=== PATIENT | male | born 1960 | race Caucasian/White ===

== ENCOUNTER → 2019-10-20 09:04 | Outpatient (BNVA) | payer OTHER, SELFPAY | PROVIDERS: Family Provider Family Medicine; Referring Provider Emergency Medicine Emergency Medical Services; Visit Provider Podiatrist Foot & Ankle Surgery | DX: M79.671 Pain in right foot (principal); M79.672 Pain in left foot | CPT/HCPCS: 73630 ==

== ENCOUNTER → 2022-03-27 09:59 | Outpatient (BNVA) | payer OTHER, SELFPAY | PROVIDERS: Family Provider Family Medicine; Visit Provider Podiatrist Foot & Ankle Surgery | DX: M21.621 Bunionette of right foot (principal); M21.622 Bunionette of left foot; M21.619 Bunion of unspecified foot; L60.8 Other nail disorders; E11.9 Type 2 diabetes mellitus without complications | CPT/HCPCS: 73630; 99213; 99214 ==

== ENCOUNTER → 2022-06-15 08:56 | Outpatient (BNVA) | payer OTHER, SELFPAY | PROVIDERS: Family Provider Family Medicine; Visit Provider Podiatrist Foot & Ankle Surgery | DX: L60.0 Ingrowing nail (principal); M21.621 Bunionette of right foot; M21.622 Bunionette of left foot; L60.8 Other nail disorders; E11.9 Type 2 diabetes mellitus without complications; L60.3 Nail dystrophy; M21.619 Bunion of unspecified foot | CPT/HCPCS: 11750 ==

== ENCOUNTER 2024-06-17 20:00 | Outpatient (CLI) | payer OTHER, SELFPAY | END 2024-06-17 20:01 | disposition home or self-care (01) | LOC: SLEEP 06-18 00:26 | PROVIDERS: Family Provider Family Medicine; Visit Provider Family Medicine | DX: G47.33 Obstructive sleep apnea (adult) (pediatric) (principal); Z99.89 Dependence on other enabling machines and devices | CPT/HCPCS: 95811 ==

== ENCOUNTER → 2025-01-19 08:57 | Outpatient (BNVA) | payer OTHER, SELFPAY | PROVIDERS: Family Provider Family Medicine; PCP Family Medicine; Visit Provider Podiatrist Foot & Ankle Surgery | DX: M79.671 Pain in right foot (principal); M79.672 Pain in left foot | CPT/HCPCS: 73630 ==

== ENCOUNTER 2025-02-23 11:29 | Emergency (ER) | payer OTHER, MEDICARE, SELFPAY ==
--- OUTSIDE RECORDS SUMMARY | 2025-02-23 11:34 | XMS_ITS | Encounter Summary ---
Author Organization [facility] Address [address] [place] [address] Care Team Providers Care Pool Player Name Role Phone Esther Olivo DO Primary Care Provider Encounter Details Date Type Department Care Team (Latest Contact Info) Description 05/10/2005 Outpatient Historical [facility] Oral and Maxillo Surgery- [address] [place] [phone] Drew Turner, DDS [address] [place] [phone] Tooth eruption disturb (Primary Dx) Social History Tobacco Use Types Packs/Day Years Used Date Smoking Tobacco: Never Assessed Sex and Gender Information Value Date Recorded Sex Assigned at Not on file 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
--- OUTSIDE RECORDS SUMMARY | 2025-02-23 11:34 | XMS_ITS | Encounter Summary ---
Author Organization [facility] Address [address] [facility] [address] Care Team Providers Care Ingot Weigher Name Role Phone Esther Olivo Primary Care Provider Encounter Details Date Type Department Care Team (Late st Contact Info) Description 02/17/2025 External Device Data [place] ABSTRACTION Provider, Abstract NO ADDRESS ON FILE Social History Tobacco Use Types Packs/Day Years Used Date Smoking Tobacco: Never Smokeless Tobacco: Never Alcohol Use Standard Drinks/Week Comments Yes 5 (1 standard drink = 0.6 oz pur e alcohol) Financial Resource Strain Answer Date R ecorded How hard is it for you to pa y for the very basics like food, housing, medical care, and heating? Not hard at all 05/31/2022 Food Insecurity Answer Date Recorded In the past 12 months, have you worried that your food would run out before you had money to buy more? Never true 05/31/2022 In the past 12 months, did y ou run out of food and didn't have money to buy more? Never true 05/31/2022 Transportation Needs Answer Date Record ed In the past 12 months, has l ack of transportation kept you from medical appointments or from getting medications? No 05/31/2022 Lack of Transportation (Non-Medical) Not on file 05/31/2022 Feeling Safe Answer Date Recorded Are you in a relationship wi th someone who hurts you emotionally and/or physically? 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 Gender Identity Not on file Sexual Orientation Not on file documented as of this encounter Plan of Treatment Upcoming Encounters Date Type Department Care Team (Late st Contact Info) Description 03/25/2025 11:20 AM CDT Office Visit [facility] [address] [place] [phone] Esther Olivo DO [address] [place] [phone] 04/02/2025 10:45 AM CDT Office Visit [facility] [address] [facility] [place] [address] Tavares Rg MD [facility] [address] [place] [address] 06/18/2025 1:20 PM PURCHASING ENGINEER Office Visit [facility] [address] [place] [phone] Esther Olivo DO [address] [place] [facility] [place] [phone] documented as of this encounter Visit Diagnoses Not on filedocumented in this encounter Care Teams Ingot Weigher Relationship Specialty Start Date End Date Esther Olivo DO [address] [place] [facility] [place] [phone] PCP - General Family Practice 10/19/09 documented as of this encounter
--- OUTSIDE RECORDS SUMMARY | 2025-02-23 11:34 | XMS_ITS | Clinical Summary ---
Author Organization [facility] Address [address] [place] [address] Care Team Providers Care Diversity Specialist Name Role Phone PallaviEsther jesus Dat DELGADO Primary Care Provider Allergies No known active allergies Medications olopatadine (PATANOL) 0.1 % solution INSTILL 1 DROP IN BOTH EYES TWICE A DAY 15 mL 12/30/19 20 Active diclofenac sodium (Voltaren) 1 % gel 10/20/19 20 Active sildenafiL, pulm.hypertension, (REVATIO) 20 mg TabletIndications: Benign prostatic hyperplasia, unspecified whether lower urinary tract symptoms present TAKE 1 TO 2 TABLETS 1 HOUR PRIOR TO INTERCOURSE 30 Tablet 11 02/06/20 20 Active omeprazole (PriLOSEC) 20 mg Capsule, Delayed Release(E.C.) Take 1 Capsule (20 mg) by mouth daily. 90 Capsule 4 04/15/20 20 Active tamsulosin (FLOMAX) 0.4 mg capsule Take 2 Capsules (0.8 mg) by mouth daily. 180 Capsule 4 04/19/20 20 Active fluticasone propionate (FLONASE) 50 mcg/spray [place], Suspension nasal inhaler USE 2 SPRAYS IN EACH NOSTRIL DAILY 16 Gram 11 05/22/20 20 Active lidocaine-prilocai ne (EMLA) 2.5-2.5 % CreamIndications:C hronic midline posterior neck pain Apply to affected area see administration instructions. Apply to affected area up to 3 times daily prn 90 Gram 4 07/15/19 21 Active metoprolol tartrate (LOPRESSOR) 50 mg tabletIndications: Essential hypertension TAKE 1 TABLET TWICE A DAY 180 Tablet 4 10/15/19 21 Active simvastatin (ZOCOR) 20 mg tabletIndications: Mixed hyperlipidemia Take 1 Tablet (20 mg) by mouth late in the day. 90 Tablet 4 10/15/19 21 Active celecoxib (CeleBREX) 200 mg capsuleIndications :Chronic midline posterior neck pain,Chronic midline low back pain with bilateral sciatica Take 1 Capsule (200 mg) by mouth 2 times daily. 180 Capsule 4 10/15/19 21 Active amLODIPine (NORVASC) 10 mg tabletIndications: Essential hypertension TAKE 1 TABLET DAILY 90 Tablet 3 10/15/19 21 Active HYDROcodone-acetam inophen (NORCO) 10-325 mg TabletIndications: Chronic midline posterior neck pain,Chronic midline low back pain with bilateral sciatica TAKE 1 T PO Q4H PRN F MODERATE PAIN . 100 Tablet 10/15/19 Active traMADoL (ULTRAM) 50 mg tabletIndications: Chronic midline posterior neck pain,Chronic midline low back pain with bilateral sciatica Take 2 Tablets (100 mg) by mouth 4 times daily as needed for Pain. Fax to express scripts 180 Tablet 2 10/15/19 Active polyethylene glycol 3350 (MIRALAX) 17 gram/dose Powder Dissolve entire bottle in ounces of fluid and drink entire liquid for bowel prep 238 Gram 10/20/19 Active bisacodyL (DULCOLAX) 5 mg Delayed Release tablet Take 2 tablets the night before bowel prep and 2 tablets the morning of bowel prep 4 Tablet 10/20/19 Active phentermine (ADIPEX P) 37.5 mg tabletIndications: Severe obesity (BMI 35.0-39.9) with comorbidity (CMS/HCC) Take 1 Tablet (37.5 mg) by mouth daily before breakfast. 30 Tablet 2 10/21/19 21 Active Active Problems Problem Noted Date Diagnosed Date Chronic midline posterior neck pain 08/31/2017 Severe obesity (BMI 35.0-39.9) with comorbidity 08/14/2016 Benign prostatic hyperplasia 08/24/2015 Obstructive sleep apnea syndrome 06/26/2012 Essential hypertension 01/29/2012 Mixed hyperlipidemia 01/29/2012 S/P cervical spinal fusion 05/29/2011 Overview (05/29/2011): C5-[address] Thao in 2009 Carpal tunnel syndrome 07/26/2010 Chronic midline low back pain with bilateral sci atica 04/22/2008 Resolved Problems Problem Noted Date Diagnosed Date Resolved Date Acute sinusitis, unspecified 11/06/2012 04/21/2014 Acute sinusitis, unspecified 11/06/2012 04/21/2014 Nasal septal deviation 06/26/201206/05 Hypertrophy of inferior nasal turbinate 06/26/2012 06/05/2017 Cubital tunnel syndrome 07/26/201004/02 Acute lumbar back pain 04/22/200804/21 Immunizations Immunization Administration Dates Next Due ([id number])(ALL AGES) VACCINI A (SMALLPOX) VACCINE, PERCUTANEOUS 09/05/2002,08/28/2002,10/10/1988 (ADACEL/BOOSTRIX)(10 YR UP) TDAP VACCINE, 0.5ML, IM 10/23/2014,07/12/2002,09/26/1988 (BIOTHRAX)(18-65 YRS) ANTHRA X VACCINE, PRE-EXPOSURE PROPHYLAXIS, POST EXPOSURE PROPHYLAXIS, 0.5 ML IM 01/27/2003,08/28/2002,08/09/2002,07/26,08/29/1990,07/17/1990 (M-M-R II/PRIORIX)(12 MO UP) MEASLES, MUMPS AND RUBELLA VIRUS VACCINE, 0.5 ML IM/SUBCUT 08/25/2002,10/10/1988 (PNEUMOVAX 23)(50 YRS UP) PN EUMOCOCCAL POLYSACCHARIDE (PPV23) 0.5 ML, IM 04/27/2020 (YF-VAX)(9 MOS UP) YELLOW FE JORDAN VACCINE, 0.5 ML, SUBCUT 03/10/1989 Hepatitis A Vaccine 09/05/2002,04/01/2001,1998 Hepatitis B Vaccine 09/05/2002, 3,07/12/2002,04/01,03/10/1989 INFLUENZA VACCINE QUADRIVALE NT 6 MOS UP PF IM 04/15/2020,04/15/2019 Influenza Seasonal Unspecifi ed Formulation IM 04/18/2019,04/01/2018,04/01/2012,06/07,06/01/2007,07/09/2005,04/29/2003 ,06/14/2002,05/03/1996,06/04/1995,04/02,05/07/1994,06/05/1992, 2,05/22/1990,05/05/1989,09/26/1988 Influenza Vaccine Quad Split 3+ Yrs Im 7,05/12/2016,05/14/2015 Influenza Vaccine Split 3+ Yrs IM 06/01/2010 Influenza Vaccine Tri Split 4+ Im 2018,04/01/2018,04/01/2012,06/07,06/01/2007,07/09/2005,04/29/2003 ,06/14/2002,05/03/1996,06/04/1995,04/02,05/07/1994,06/05/1992, 2,05/22/1990,05/05/1989,09/26/1988 Measles Vaccine SQ 10/10/1988 Meningococcal ACWY Vaccine, Unspecified Formulation 08/28/2002,09/26/1988 Plague Vaccine IM 03/10/1989 Poliovirus Vaccine Live Oral 08/05/1994,10/10/18 89 Rubella Vaccine SQ 09/02/1988 Typhoid Vaccine IM 08/05/1994,05/22/1990 Zoster Vaccine Live SQ 06/18/2019,04/15/2019 Family History Medical History Relation Name Comments Parkinson's Disease Father Diabetes Maternal Grandfather Colon Cancer Neg Hx Relation Name Status Comments Father Alive Maternal Grandfather Mother Alive Sister Alive Social History Tobacco Use Types Packs/Day Years Used Date Smoking Tobacco: Never Smokeless Tobacco: Never Tobacco Cessation:Counseling Given: No Alcohol Use Standard Drinks/Week Comments Yes 5.8 (1 standard drink = 0.6 oz p ure alcohol) occ Sex and Gender Information Value Date Recorded Sex Assigned at Not on file 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 Gender Identity Not on file Sexual Orientation Not on file Occupation Industry Job Start Date Job End Date [employer] [place] Not on file Not on file Not on file Not on file Not on file Not on file Not on file Last Filed Vital Signs Vital Sign Reading Time Taken Comments Blood Pressure 200/118 12/16/2020 11:52 AM CDT Pulse 57 12/16/2020 11:34 AM CDT Temperature 36.6 C (97.8 F) 12/16/2020 11:34 AM CDT Respiratory Rate 20 12/16/2020 11:34 AM CDT Oxygen Saturation 97% 12/16/2020 11:34 AM CDT Inhaled Oxygen Concentration - - Weight 112.5 kg (248 lb) 12/16/2020 11:34 AM CDT Height 170.2 cm (5' 7 ) 12/16/2020 11:34 AM CDT Body Mass Index 38.84 12/16/2020 11:34 AM CDT Plan of Treatment Health Maintenance Due Date Last Done Comments DIABETES ANNUAL FOOT EXAM 12/04/1977 DIABETES HBA1C Q 6 MONTHS 12/04/1977 FIT-DNA Q 3 years 12/04/2004 FIT/FOBT Q 1 year 12/04/2004 Flex Sig/CT Colonography Q 5 years 12/04/2004 DIABETES MICROALBUMIN ANNUAL SCREEN 01/28/2013 01/29/2012 ZOSTER VACCINE (2 of 3) 08/13/2019 06/18/2019, 04/15 RSV VACCINE (60+ or ) (1 - Risk 60-74 years 1-dose series) 2019 Traditional Medicare (ACO) A nnual Wellness Visit 04/16/2021 04/15/2020 PNEUMOCOCCAL VACCINE 50+ YEA RS (2 of 2 - PCV) 04/27/2021 04/27/2020 LDL CHOLESTEROL ANNUAL 10/14/2021 1, 01/06/2020, 03/18/2019, Additional history exists DTAP/TDAP/TD VACCINES (4 - T d or Tdap) 10/23/2024 10/23/2014, 07/12/2002, 09/26/1988 INFLUENZA VACCINE (#1) 2025 0, 04/18/2019, 04/18/2019, Additional history exists DIABETES ANNUAL RETINAL EXAM 09/25/2025 09/25/2024 COLORECTAL SCREENING 12/16/2025 12/16/2020, 07/08/2015, 07/08/2015 Colorectal Cancer Screening 12/16/2025 Medical Devices Implanted Type Area Presales Senior Specialist Device Identifier Shelf Expiration Date Model / Serial / Lot Vitossba Implanted:Qty: 1 on 05/24/2010 at [facility] Biological N/A: Neck ORTHOVITA 12/01/2011 [id number] / / [id number] Log 32906 - Dimitris Trinica Cervical Plating System - 1 - Plate Trinica Select 1lvl [id number] Implanted:Qty: 1 on 05/24/2010 at [facility] Plate N/A: Neck DIMITRIS-SPINE [id number] 01 / / [id number] Log [id number] - Dimitris Trinica Cervical Plating System - 1 - Screw Trnca Sd Nadia 4.2x14mm [id number] Implanted:Qty: 4 on 05/24/2010 at [facility] Screw N/A: Neck DIMITRIS-SPINE [id number] 05 / / [id number] Fortitude Implanted:Qty: 1 on 05/24/2010 at [facility] Spacer N/A: Neck DIMITRIS-SPINE 03/02/2015 [id number] / / [id number] Procedures Procedure Name Priority Date/Time Associated Diagnosis Comments LIPID PANEL Routine 10/14/2020 9:50 AM CDT Essential hypertension Mixed hyperlipidemia ENDOSCOPY, COLON, SCREENING Routine 07/08/2015 10:16 AM FRYER OPERATOR Screen for colon cancer MICROALBUMIN/CREAT ININE RATIO, RANDOM UR Routine 01/29/2012 9:31 AM CDT Microalbuminuria from Last 3 Months or Most Recently Relevant to Health Maintenance Results * (ABNORMAL) LIPID PANEL (10/14/2020 9:50 AM CDT) CHOLESTEROL 161 <200 mg/dL 10/14/2020 9:14 PM CDT [facility] TRIGLYCERIDE 406(H) <150 mg/dL 10/14/2020 9:14 PM CDT [facility] HDL 34(L) 40 - 59 mg/dL 10/14/2020 9:14 PM CDT [facility] LDL CALCULATED 10/14/2020 9:14 PM CDT [facility] Comment:Calculated LDL is no t accurate when the Triglyceride value exceeds 400. NON-HDL CHOLESTEROL 127 <130 mg/dL 10/14/2020 9:14 PM CDT [facility] Blood Venipuncture / Unknown 10/14/2020 9:50 AM CDT 10/14/2020 8:15 PM CDT Narrative [facility] - 10/14/2020 9:14 PM CDT TOTAL CHOLESTEROL mg/dL Desirable <200 Borderline high 200-239 High >=240 TRIGLYCERIDES mg/dL Normal <150 Borderline high 150-199 High 200-499 Very high >=500 HDL CHOLESTEROL mg/dL Low <40 Normal 40-59 Desirable >=60 NON HDL CHOLESTEROL mg/dL Optimal <130 Near Optimal 130-159 Borderline High 160-189 Very High >=190 CALCULATED LDL mg/dL LDL <70, OPTIMAL if have Atherosclerotic cardiovascular disease (ASCVD) or intermediate or higher (>7.5%) 10 year risk of ASCVD including most adults with diabetes. LDL <100, Optimal in adult patients with low (<7.5%) 10 year ASCVD risk LDL 100-160, Suboptimal LDL >160, High LDL >190, Very high ATPIII Guidelines Reference Ranges for Lipid Panels (NCEP/AMA) . us Esther Olivo DO CHEMISTRY ORDERABLES Final Result [facility] CLIA# [id number] [address] [place] [id number] * MICROALBUMIN/CREATININE RATIO, RANDOM UR (01/29/2012 9:31 AM CDT) MICROALBUMIN URINE 1.2 MG/DL [facility] Creatinine, Urine 97 MG/DL [facility] MICROALBUMIN/CREA T RATIO, UR 12.4 MCG/MG CREAT. [facility] Comment: NORMAL: <30 MCG/MG CREAT MICROALBUMINURIA: 30-300 MCG/MG CREAT CLINICAL ALBUMINURIA: >300 MCG/MG CREAT Urine specimen (specimen) 01/29/2012 9:31 AM CDT 01/29/2012 9:32 AM CDT [place] URINE ORDERABLES Final Result [facility] [place] [facility]# [id number] [address] [place] [address] from Last 3 Months or Most Recently Relevant to Health Maintenance Insurance MEDICARE PART A AND B [employer] Advance Directives For more information, please contact: [phone] * Full Code (Latest Code Status on File) Date Activated Date Inactivated Comments 12/16/2020 11:09 AM 12/16/2020 2:21 PM * Full Code Date Activated Date Inactivated Comments 07/08/2015 10:16 AM 07/08/2015 2:27 PM * Full Code Date Activated Date Inactivated Comments 11/29/2012 10:35 AM 11/30/2012 2:01 AM * Full Code Date Activated Date Inactivated Comments 11/29/2012 10:34 AM 11/29/2012 10:35 AM * Full Code Date Activated Date Inactivated Comments 09/01/2011 10:13 AM 09/02/2011 2:01 AM Care Teams Diversity Specialist Relationship Specialty Start Date End Date Esther Olivo DO [address] [place] [address] PCP - General Family Practice 10/19/09
--- OUTSIDE RECORDS SUMMARY | 2025-02-23 11:34 | XMS_ITS | Encounter Summary ---
Author Organization [facility] Address [address] [place] [address] Care Team Providers Care Bpm Developer Name Role Phone Esther Olivo DO Primary Care Provider Encounter Details Date Type Department Care Team (Latest Contact Info) Description 02/17/2005 Outpatient Historical [facility] Oral and Maxillo Surgery- [address] [place] [phone] Drew Turner, DDS [address] [place] [phone] Tooth eruption disturb (Primary Dx) Social History Tobacco Use Types Packs/Day Years Used Date Smoking Tobacco: Never Assessed Sex and Gender Information Value Date Recorded Sex Assigned at Not on file Legal Sex Male 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
--- OUTSIDE RECORDS SUMMARY | 2025-02-23 11:34 | XMS_ITS | Encounter Summary ---
Author Organization [facility] Address [address] [place] [address] Care Team Providers Care Manager Urology Name Role Phone Esther Olivo DO Primary Care Provider [phone] Encounter Details Date Type Department Care Team (Latest Contact Info) Description 05/18/2005 Outpatient Historical [facility] Oral and Maxillo Surgery- [address] [place] [phone] Drew Turner, DDS [address] [place] [phone] SURGERY FOLLOWUP NOS (Primary Dx) Social History Tobacco Use Types Packs/Day Years Used Date Smoking Tobacco: Never Assessed Sex and Gender Information Value Date Recorded Sex Assigned at Not on file 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
--- OUTSIDE RECORDS SUMMARY | 2025-02-23 11:34 | XMS_ITS | Encounter Summary ---
Author Organization [facility] Address [address] [place] [address] Care Team Providers Care Metal Hanger Name Role Phone Esther Olivo DO Primary Care Provider Encounter Details Date Type Department Care Team (Latest Contact Info) Description 06/02/2005 Outpatient Historical [facility] Oral and Maxillo Surgery- [address] [place] [address] Drew Turner, DDS [address] [place] [phone] SURGERY FOLLOWUP NOS (Primary Dx) Social History Tobacco Use Types Packs/Day Years Used Date Smoking Tobacco: Never Assessed Sex and Gender Information Value Date Recorded Sex Assigned at Not on file 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
--- OUTSIDE RECORDS SUMMARY | 2025-02-23 11:34 | XMS_ITS | Clinical Summary ---
Author Organization [facility] Address [address] [place] [address] Care Team Providers Care Shipping/Receiving Clerk Name Role Phone Esther Olivo Primary Care Provider Allergies Active Allergy Reactions Criticality Noted Date Comments Ibuprofen Nausea and Vomiting Medium 05/22/2024 Phentermine Other (See Comments),Hypertension Medium 05/31/2022 Upsets stomach Medications Blood-Glucose Meter Check blood sugars daily and prn 1 Each 01/14/20 21 Active blood sugar diagnostic (Blood Glucose Test) Strip Test sugars daily and prn 100 Strip 01/14/20 21 Active CYANOCOBALAMIN, VITAMIN B-12, ORAL Take by mouth. Active VITAMIN A ORAL Take by mouth. Active diclofenac sodium (VOLTAREN) 1 % gelIndications:Natty geo osteoarthritis of feet, bilateral APPLY UP TO FOUR TIMES A DAY NEEDED 300 Gram 8 04/30/20 23 Active simvastatin (ZOCOR) 20 mg tabletIndications: Mixed hyperlipidemia TAKE 1 TABLET LATE IN THE DAY 61589 Tablet 3 02/05/20 24 Active tadalafiL (Cialis) 20 mg tablet Take 1 Tablet (20 mg) by mouth 1 time daily as needed for Erectile Dysfunction. 30 Tablet 11 04/01/20 24 Active traMADoL (ULTRAM) 50 mg tabletIndications: Chronic midline low back pain with bilateral sciatica Take 2 Tablets (100 mg) by mouth 4 times daily as needed for Pain, Moderate. 180 Tablet 2 05/22/20 24 Active celecoxib (CeleBREX) 200 mg capsuleIndications :Chronic midline posterior neck pain,Chronic midline low back pain with bilateral sciatica TAKE 1 CAPSULE TWICE A DAY 180 Capsule 3 05/23/20 24 Active naloxone (NARCAN) 4 mg/spray Omaha, Non-Aerosol Administer 1 Omaha (4 mg) in one nostril (alternate nostril with each dose) one time as needed for Respiration (slowed with opioid use). Push plunger to administer. Call 911. May repeat dose, every 2-3 minutes, if the person does not wake up or breathing is not improved. 1 Each 05/27/20 24 Active amLODIPine (NORVASC) 10 mg tabletIndications: Essential hypertension TAKE 1 TABLET DAILY 90 Tablet 3 05/28/20 24 Active fluticasone propionate (FLONASE) 50 mcg/spray [place], Suspension nasal inhaler USE 2 SPRAYS IN EACH NOSTRIL DAILY 16 Gram 11 07/03/19 25 Active metoprolol tartrate (LOPRESSOR) 100 mg tablet Take 1 Tablet (100 mg) by mouth 2 times daily. 180 Tablet 4 07/11/19 25 Active omeprazole (PriLOSEC) 20 mg Capsule, Delayed Release(E.C.) Take 1 Capsule (20 mg) by mouth daily. 100 Capsule 3 07/24/19 25 Active lidocaine-prilocai ne (EMLA) 2.5-2.5 % Cream APPLY TO AFFECTED AREA THREE TIMES A DAY NEEDED 90 Gram 11 08/03/19 25 Active tamsulosin (FLOMAX) 0.4 mg capsule TAKE 2 CAPSULES DAILY 180 Capsule 3 11/20/19 25 Active metFORMIN (GLUCOPHAGE XR) 750 mg Extended Release 24 hour tablet TAKE 1 TABLET TWICE A DAY WITH MEALS FOR DIABETES 180 Tablet 3 11/20/19 25 Active magnesium OXIDE 500 mg magnesium Tablet Take 250 mg by mouth daily. Active semaglutide (Ozempic) 2 mg/dose (8 mg/3 mL) Pen Injector Inject 2 mg by subcutaneous injection every 7 days. 9 mL 3 01/19/20 25 Active HYDROcodone-acetam inophen (NORCO) 10-325 mg TabletIndications: Chronic midline low back pain with bilateral sciatica Take 1 Tablet by mouth every 4 hours as needed for Pain, Moderate. Max Daily Amount: 6 Tablets 180 Tablet 01/27/20 25 Active HYDROcodone-acetam inophen (NORCO) 10-325 mg TabletIndications: Chronic midline low back pain with bilateral sciatica Take 1 Tablet by mouth every 4 hours as needed for Pain, Moderate. Take tab every 6 hours prn pain Max Daily Amount: 6 Tablets 180 Tablet 11/26/19 025 Discontin ued(Reord er) Active Problems Problem Noted Date Diagnosed Date Primary osteoarthritis involving multiple joints 06/03/2023 Type 2 diabetes mellitus wit hout complication, without long-term current use of insulin 01/13/2021 Chronic neck pain 08/31/2017 Severe obesity (BMI 35.0-39.9) with comorbidity 08/14/2016 Benign prostatic hyperplasia with urinary hesita ncy 08/24/2015 Obstructive sleep apnea syndrome 06/26/2012 Essential hypertension 01/29/2012 Mixed hyperlipidemia 01/29/2012 S/P cervical spinal fusion 05/29/2011 Overview (10/28/2020): C5-[address] Thao in 2009 Carpal tunnel syndrome 07/26/2010 Chronic midline low back pain with bilateral sci atica 04/22/2008 Resolved Problems Problem Noted Date Diagnosed Date Resolved Date Acute sinusitis, unspecified 11/06/2012 04/21/2014 Acute sinusitis, unspecified 11/06/2012 04/21/2014 Nasal septal deviation 06/26/201206/05 Hypertrophy of inferior nasal turbinate 06/26/2012 06/05/2017 Cubital tunnel syndrome 07/26/201004/02 Acute lumbar back pain 04/22/200804/21 Encounters Date Type Department Care Team Description 02/17/2025 External Device Data ST[facility] ABSTRACTION Provider, Abstract 02/10/2025 External Device Data [facility] ABSTRACTION Provider, Abstract 01/26/2025 [facility] [address] [place] [address] Esther Olivo DO Chronic midline low back pain with bilateral sciatica 01/18/2025 [facility] [address] [place] [address] Esther Olivo DO 01/14/2025 External Device Data STL ABSTRACTION Provider, Abstract 01/13/2025 External Device Data STL ABSTRACTION Provider, Abstract 12/23/2024 11:40 AM CDT Office Visit [facility] [address] [place] [address] Esther Olivo, Type 2 diabetes mellitus without complication, without long-term current use of insulin (CMS/[facility]) (Primary Dx); Chronic midline low back pain with bilateral sciatica; Essential hypertension; Mixed hyperlipidemia; Benign prostatic hyperplasia with urinary hesitancy; Primary osteoarthritis involving multiple joints; Chronic neck pain; Obstructive sleep apnea syndrome; Severe obesity (BMI 35.0-39.9) with comorbidity 12/16/2024 External Device Data STL ABSTRACTION Provider, Abstract 11/25/2024 11:40 AM CDT Office Visit [facility] [address] [place] [address] Esther Olivo DO Type 2 diabetes mellitus without complication, without long-term current use of insulin (CMS/HCC) (Primary Dx); Spider bite wound, accidental or unintentional, subsequent encounter; Chronic midline low back pain with bilateral sciatica; Essential hypertension; Mixed hyperlipidemia; Benign prostatic hyperplasia with urinary hesitancy; Primary osteoarthritis involving multiple joints; Chronic neck pain; Obstructive sleep apnea syndrome; Severe obesity (BMI 35.0-39.9) with comorbidity from Last 3 Months Immunizations Immunization Administration Dates Next Due ([id number])(ALL AGES) VACCINI A (SMALLPOX) VACCINE, PERCUTANEOUS 09/05/2002,08/28/2002,10/10/1988 [...] INFLUENZA VACCINE QUADRIVALE NT 6 MOS UP IM 05/31/2017,05/12/2016,05/14/2015 INFLUENZA VACCINE QUADRIVALE NT 6 MOS UP PF IM 05/28/2023,05/31/2022,05/23/2021,04/15,04/15/2019 INFLUENZA VACCINE TRIVALENT SPLIT VIRUS, (6 MOS UP), 0.5ML (PF), IM 05/22/2024 Influenza Seasonal Unspecifi ed Formulation IM 04/18/2019,04/01/2018,04/01/2012,06/07,06/01/2007,07/09/2005,04/29/2003 ,06/14/2002,05/03/1996,06/04/1995,04/02,05/07/1994,06/05/1992, 2,05/22/1990,05/05/1989,09/26/1988 Influenza Vaccine Quad Split 3+ Yrs Im 7,05/12/2016,05/14/2015 Influenza Vaccine Split 3+ Yrs IM 06/01/2010 Influenza Vaccine Tri Split 4+ Im 2018,04/01/2018,04/01/2012,06/07,06/01/2010,06/01/2007,07/09/2005 ,04/29/2003,06/14/2002,05/03/1996,09/1994,04/29/1995,05/07/1994, 2,08/02/1991,05/22/1990,05/05/1989, Measles Vaccine SQ 10/10/1988 Meningococcal ACWY Vaccine, Unspecified Formulation 08/28/2002,09/26/1988 Plague Vaccine IM 03/10/1989 Pneumococcal Polysaccharide Vacc 23-samantha IM SCHIP 04/27/2020 Poliovirus Vaccine Live Oral 08/05/1994,10/10/18 89 Rubella Vaccine SQ 09/02/1988 Typhoid Vaccine IM 08/05/1994,05/22/1990 Zoster Vaccine Live SQ 06/18/2019,04/15/2019 Family History Medical History Relation Name Comments Parkinson's Disease Father Diabetes Maternal Grandfather Samm Silva Colon Cancer Neg Hx Relation Name Status Comments Father Alive Maternal Grandfather Samm Silva Mother Alive Sister Alive Social History Tobacco Use Types Packs/Day Years Used Date Smoking Tobacco: Never Smokeless Tobacco: Never Tobacco Cessation:Counseling Given: No Alcohol Use Standard Drinks/Week Comments Yes 5 [...] on file Legal Sex Male 11:54 PM [employer] Gender Identity Not on file Sexual Orientation Not on file Last Filed Vital Signs Vital Sign Reading Time Taken Comments Blood Pressure 136/80 12/23/2024 11:25 AM CDT Pulse 75 12/23/2024 11:25 AM CDT Temperature 37.1 C (98.8 F) 12/23/2024 11:25 AM CDT Respiratory Rate 17 12/11/2023 1:44 PM CDT Oxygen Saturation 96% 12/23/2024 11:25 AM CDT Inhaled Oxygen Concentration - - Weight 110.2 kg (243 lb) 12/23/2024 11:25 AM CDT Height 170.2 cm (5' 7 ) 12/23/2024 11:25 AM CDT stated Body Mass Index 38.06 12/23/2024 11:25 AM CDT Plan of Treatment Upcoming Encounters Date Type Department Care Team (Late st Contact Info) Description 03/25/2025 11:20 AM CDT Office Visit [facility] [address] [place] [phone] Esther Olivo, DO [address] [place] [address] 04/02/2025 10:45 AM CDT Office Visit [facility] Urology [address] [place] [phone] Tavares Rg MD [address] [place] [address] [place] [phone] 06/18/2025 1:20 PM [employer] Office Visit [facility] [address] [place] [phone] Esther Olivo, DO [address] [place] [address] Health Maintenance Due Date Last Done Comments FIT/FOBT Q 1 year 12/04/2004 Flex Sig/CT Colonography Q 5 years 12/04/2004 ZOSTER VACCINE (2 of 3) 08/13/2019 06/18/2019, 04/15 RSV VACCINE (60+ or ) (1 - Risk 60-74 years 1-dose series) 2019 FIT-DNA Q 3 years 02/22/2024 02/21/2021 DIABETES ANNUAL FOOT EXAM 05/28/2024 05/28/2023, DIABETES MICROALBUMIN ANNUAL SCREEN 01/21/2025 01/22/2024, 02/21/2022 INFLUENZA VACCINE (#1) 2025 4, 05/28/2023, 05/31/2022, Additional history exists DIABETES HBA1C Q 6 MONTHS 03/28/20252024, 01/22/2024, 08/30/2023, Additional history exists Traditional Medicare (ACO) A nnual Wellness Visit 05/23/2025 05/22/2024, 05/28/2023, 05/23/2021 DIABETES ANNUAL RETINAL EXAM 09/25/2025 09/25/2024 DIABETES: A1C (Auto Order) 09/25/202509/25, 01/22/2024, 08/30/2023, Additional history exists LDL CHOLESTEROL ANNUAL 09/25/2025 5, 01/22/2024, 02/23/2023, Additional history exists COLORECTAL SCREENING 07/26/2028 07/26/2023, 12/16/2020, 07/08/2015, Additional history exists Colorectal Cancer Screening 07/26/2028 DTAP/TDAP/TD VACCINES (5 - T d or Tdap) 02/11/2032 02/10/2022, 10/23/2014, 07/12/2002, Additional history exists PNEUMOCOCCAL VACCINE 50+ YEARS Completed 0 02/10/2022, 04/27/2020, 04/27/2020 Medical Devices Implanted Type Area Sales Team Leader Device Identifier Shelf Expiration Date Model / Serial / Lot Vitossba Implanted:Qty: 1 on 05/24/2010 Biological N/A: Neck ORTHOVITA 12/01/2011 2102-160 1 / / [id number] Imp Prostate Urolift 2 Cartridge Hndl Kit Ul2-Chk - [id number] Implanted:Qty: 1 on 02/14/2023 by Tavares Rg MD at [facility] Other N/A: Prostate NEOTRACT [id number] 11/15/2023 UL2-CHK / / [id number] Imp Prostate Urolift 2 Cartridge Ul2-C - [id number] Implanted:Qty: 1 on 02/14/2023 by Tavares Rg MD at [facility] Other N/A: Prostate NEOTRACT [id number] 10/10/2023 UL2-C / / [id number] Imp Prostate Urolift 2 Cartridge Ul2-C - [id number] Implanted:Qty: 1 on 02/14/2023 by Tavares Rg MD at [facility] Other N/A: Prostate NEOTRACT [id number] 10/10/2023 UL2-C / / [id number] Imp Prostate Urolift 2 Cartridge Ul2-C - [id number] Implanted:Qty: 1 on 02/14/2023 by Tavares Rg MD at [facility] Other N/A: Prostate NEOTRACT [id number] 10/10/2023 UL2-C / / [id number] Log [id number] - Dimitris Trinica Cervical Plating System - 1 - Plate Trinica Select 1lvl [id number] Implanted:Qty: 1 on 05/24/2010 Plate N/A: Neck DIMITRIS-SPINE 07.51565 .001 / / [id number] Log [id number] - Dimitris Trinica Cervical Plating System - 1 - Screw Trnca Sd Nadia 4.2x14mm [id number] Implanted:Qty: 4 on 05/24/2010 Screw N/A: Neck DIMITRIS-SPINE 07.80037 .005 / / [id number]#[id number] Fortitude Implanted:Qty: 1 on 05/24/2010 Spacer N/A: Neck DIMITRIS-SPINE 03/02/2015 2302-100 6 / / [id number] Procedures Procedure Name Priority Date/Time Associated Diagnosis Comments HM DIABETES EYE EXAM Routine 09/25/2024 10:36 AM CDT LIPID PANEL Routine 09/25/2024 9:44 AM CDT Type 2 diabetes mellitus without complication, without long-term current use of insulin ([facility]) HEMOGLOBIN A1C Routine 09/25/2024 9:44 AM CDT Type 2 diabetes mellitus without complication, without long-term current use of insulin ([facility]) MICROALBUMIN/CREATIN INE RATIO, RANDOM UR Routine 01/22/2024 9:50 AM CDT Type 2 diabetes mellitus without complication, without long-term current use of insulin ([facility]) COLON CANCER SCREEN, STOOL DNA Routine 02/21/2021 2:30 PM CDT Screening for colon cancer from Last 3 Months or Most Recently Relevant to Health Maintenance Results * DIABETES EYE EXAM (09/25/2024 10:36 AM CDT) us Abstract Provider HEALTH MAINTENANCE Edited Resu lt - Final * (ABNORMAL) HEMOGLOBIN A1C (09/25/2024 9:44 AM CDT) HEMOGLOBIN A1C 6.3(H) <5.7 % of total Hgb [facility] Comment: For someone without known diabetes, a hemoglobin A1c value between 5.7% and 6.4% is consistent with prediabetes and should be confirmed with a follow-up test. For someone with known diabetes, a value <7% indicates that their diabetes is well controlled. A1c targets should be individualized based on duration of diabetes, age, comorbid conditions, and other considerations. This assay result is consistent with an increased risk of diabetes. Currently, no consensus exists regarding use of hemoglobin A1c for diagnosis of diabetes for children. ESTIMATED AVERAGE GLUCOSE (MG/DL) 134 mg/dL [facility] ESTIMATED AVERAGE GLUCOSE (MMOL/L) 7.4 mmol/L [facility] Comment: FASTING:YES FASTING: YES Test Performed at: [facility] [address] [place] [address] Ronal Ye MD Blood 09/25/2024 9:44 AM CDT 09/25/2024 9:45 AM CDT us Esther Dat AlPallavi DO CHEMISTRY ORDERABLES Final Result [facility] [phone] [facility] [address] [address] [place] [phone] * (ABNORMAL) LIPID PANEL (09/25/2024 9:44 AM CDT) CHOLESTEROL 142 <200 mg/dL [facility] HDL 45 > OR = 40 mg/dL [facility] TRIGLYCERIDE 152(H) <150 mg/dL [facility] LDL CALCULATED 74 mg/dL (calc) [facility] Comment: Reference range: <100 Desirable range <100 mg/dL for primary prevention; <70 mg/dL for patients with CHD or diabetic patients with > or = 2 CHD risk factors. LDL-C is now calculated using the Angela calculation, which is a validated novel method providing better accuracy than the Friedewald equation in the estimation of LDL-C. Mann MARTIN et al. KYE. 2013;310(19): 7451-4499 (http://education.GLG/faq/KSX380) CHOL/HDL RATIO 3.2 <5.0 (calc) [facility] NON-HDL CHOLESTEROL 97 <130 mg/dL (calc) [facility] Comment: For patients with diabetes plus 1 major ASCVD risk factor, treating to a non-HDL-C goal of <100 mg/dL (LDL-C of <70 mg/dL) is considered a therapeutic option. Test Performed at: [facility] [address] [facility] [place] [address] Ronal Ye MD Blood 09/25/2024 9:44 AM CDT 09/25/2024 9:45 AM CDT us Esther Dat AlPallavi DO CHEMISTRY ORDERABLES Final Result [facility] [phone] [facility] [address] [place] [address] * MICROALBUMIN/CREATININE RATIO, RANDOM UR (01/22/2024 9:50 AM CDT) Pathologist [facility] Creatinine, Urine 68 20 - 320 mg/dL [facility] MICROALBUMIN, URINE 0.7 See Note: mg/dL [facility] Comment: Reference Range: Reference Range Not established MICROALBUMIN/CREAT RATIO, UR 10 <30 mg/g creat [facility] Comment: The ADA defines abnormalities in albumin excretion as follows: Albuminuria Category Result (mg/g creatinine) Normal to Mildly increased <30 Moderately increased 30-299 Severely increased > OR = 300 The ADA recommends that at least two of three specimens collected within a 3-6 month period be abnormal before considering a patient to be within a diagnostic category. Test Performed at: [facility] [id number] [place] [phone] Ronal Ye MD Urine URINE SPECIMEN OBTAINED BY CLEAN CATCH PROCEDURE / Unknown 01/22/2024 9:50 AM CDT 01/23/2024 6:28 AM CDT us Esther Olivo DO URINE ORDERABLES Final Resu lt [facility] [phone] [facility] [address] [place] [address] * COLON CANCER SCREEN, STOOL DNA (02/21/2021 2:30 PM CDT) [facility] COLOGUARD RESULT Negative Negative [facility] Comment: NEGATIVE TEST RESULT. A negative Cologuard result indicates a low likelihood that a colorectal cancer (CRC) or advanced adenoma (adenomatous polyps with more advanced pre-malignant features) is present. The chance that a person with a negative Cologuard test has a colorectal cancer is less than 1 in 1500 (negative predictive value >99.9%) or has an advanced adenoma is less than 5.3% (negative predictive value 94.7%). These data are based on a prospective cross-sectional study of 10,000 individuals at average risk for colorectal cancer who were screened with both Cologuard and colonoscopy. (Burke Jacob al, N Engl J Med 2014;370(14):0008-6385) The normal value (reference range) for this assay is negative. COLOGUARD RE-SCREENING RECOMMENDATION: Periodic colorectal cancer screening is an important part of preventive healthcare for asymptomatic individuals at average risk for colorectal cancer. Following a negative Cologuard result, the [place] [employer] Society and U.S. Multi-Society Task Force screening guidelines recommend a Cologuard re-screening interval of 3 years. References: [place] [employer] Guideline for Colorectal Cancer Screening: https://www.cancer.org/cancer/rbmch-aeldkl-otvyjh/pbulcvtcs-qrvxbhdeq-ulizqka/ac s-rec ommendations.html.; Hemant FREY, Roel AVILA, Sangita ArringtonK, Colorectal Cancer Screening: Recommendations for Physicians and Patients from the U.S. Multi-Society Task Force on Colorectal Cancer Screening , Am J Gastroenterology 2017; 112:9144-1728. TEST DESCRIPTION: Composite algorithmic analysis of stool DNA-biomarkers with hemoglobin immunoassay. Quantitative values of individual biomarkers are not reportable and are not associated with individual biomarker result reference ranges. Cologuard is intended for colorectal cancer screening of adults of either sex, 45 years or older, who are at average-risk for colorectal cancer (CRC). Cologuard has been approved for use by the U.S. FDA. The performance of Cologuard was established in a cross sectional study of average-risk adults aged 50-84. Cologuard performance in patients ages 45 to 49 years was estimated by sub-group analysis of near-age groups. Colonoscopies performed for a positive result may find as the most clinically significant lesion: colorectal cancer [4.0%], advanced adenoma (including sessile serrated polyps greater than or equal to 1cm diameter) [20%] or non- advanced adenoma [31%]; or no colorectal neoplasia [45%]. These estimates are derived from a prospective cross-sectional screening study of 10,000 individuals at average risk for colorectal cancer who were screened with both Cologuard and colonoscopy. (Burke Bhakta, N Engl J Med 2014;370(14):3286-5722.) Cologuard may produce a false negative or false positive result (no colorectal cancer or precancerous polyp present at colonoscopy follow up). A negative Cologuard test result does not guarantee the absence of CRC or advanced adenoma (pre-cancer). The current Cologuard screening interval is every 3 years. ([place] [employer] and U.S. Multi-Society Task Force). Cologuard performance data in a 10,000 patient pivotal study using colonoscopy as the reference method can be accessed at the following location: www.Liibook/results. Additional description of the Cologuard test process, warnings and precautions can be found at [email or web address].com. Stool STOOL SPECIMEN / Unknown 02/21/2021 2:30 PM CDT 02/23/2021 12:10 AM CDT Esther Olivo DO BODY FLUIDS AND STOOLS Liliam malloy Result [facility] # [id number] [address] , [address] [place] [address] from Last 3 Months or Most Recently Relevant to Health Maintenance Insurance MEDICARE PART A AND B Norse * Guarantor: [employer]) Account Type Relation to Patient Date of Phone Billing Address Corporate [place] [address] [place] [employer] [employer] Advance Directives For more information, please contact: [phone] * Full Code (Latest Code Status on File) Date Activated Date Inactivated Comments 07/26/2023 7:53 AM 07/26/2023 11:50 AM Care Teams Shipping/Receiving Clerk Relationship Specialty Start Date End Date Esther Olivo DO [address] [place] [phone] PCP - General Family Practice 10/19/09
[2025-02-23 12:00] VITALS: BP 154/92; PULSE 68; RESP 17; TEMP 36.6; O2SAT 96; BMI 36.8
--- NOTE | 2025-02-23 12:08 | W.ED.EXTPRO ---
HPI - Extremity Problem General: Chief complaint: Extremity Problem,Nontraumatic Stated complaint: [facility] sent over pt for poss blood clot in rleg Time Seen by Provider: 02/23/25 11:47 Source: patient Mode of arrival: ambulatory Limitations: no limitations History of Present Illness: Patient is a nice 64-year-old male who presents to ED today with concerns regarding his right lower extremity. Patient states he has been having pain in his right calf for quite some time but states on he began noticing swelling and rash/redness. States they day before he started he had chills, body aches, fatigue but that the symptoms only lasted a day and have now returned. He has been ambulatory on the extremity without difficulty or assistance. Was reportedly seen at the [facility] and recommended to come to the emergency department for DVT rule out. No recent tick bites. No previous hx of DVT/PE. MD Complaint: extremity pain and extremity swelling Onset (ago): day(s) Pain Consistency: constant Location: right and lower extremity Relieving factors: nothing Exacerbating factors: nothing Associated symptoms: Reports rash; Deny chest pain or fever(s) Related Data Home Medications ?Medication ?Instructions ?Recorded ?Confirmed amlodipine 10 mg tablet 10 mg PO DAILY 10/20/19 01/19/25 celecoxib 200 mg capsule 200 mg PO DAILY 10/20/19 01/19/25 finasteride 5 mg tablet 5 mg PO DAILY 10/20/19 01/19/25 hydrocodone 10 mg-acetaminophen 1 tab PO Q4H PRN 10/20/19 01/19/25 325 mg tablet metoprolol succinate 100 mg 100 mg PO DAILY 10/20/19 01/19/25 tablet,extended release 24 hr olopatadine 0.1 % eye drops 1 drop ophthalmic (eye) BID 10/20/19 01/19/25 simvastatin 40 mg tablet 40 mg PO DAILY 10/20/19 01/19/25 tamsulosin 0.4 mg capsule 0.4 mg PO DAILY 10/20/19 01/19/25 tramadol 50 mg tablet 50 mg PO Q8H PRN 10/20/19 01/19/25 Previous Rx's ?Medication ?Instructions ?Recorded diclofenac sodium 1 % topical gel 2 gm topical QID #100 grams 10/20/19 (Voltaren) custom molded orthotics #2 ea 01/19/25 doxycycline monohydrate 100 mg 100 mg PO Q12H 10 days #20 caps 02/23/25 capsule Allergies Allergy/AdvReac Type Severity Reaction Status Date / Time gabapentin AdvReac ADR-Gastrointestinal Verified 02/23/25 12:06 Upset ibuprofen AdvReac ADR-Gastrointestinal Verified 02/23/25 12:06 Upset Review of Systems Const: Denies: fever(s), chills, body aches, fatigue or malaise Card: Denies: chest pain Resp: Denies: dyspnea GI: Denies: abdominal pain Musc: Reports: extremity pain and extremity swelling; Denies: neck pain, back pain, joint pain, joint swelling, joint redness, joint warmth, joint stiffness, limited range of motion, muscle cramps or muscle weakness Skin/Breast: Reports: rash and erythema Neuro: Denies: headache(s), numbness in extremities, weakness in extremities, sensory changes or difficulty walking PFSH ED PFSH: Medical History Microscopic hematuria Hypertension Chronic pain Surgical History History of neck surgery History of carpal tunnel surgery History of elbow surgery Family History Denies family history of Diabetes Cancer Social History Smoking and tobacco/nicotine status: never used tobacco/nicotine Alcohol intake: current Alcohol intake frequency: few times a month Household members: spouse and significant other Current occupational status: retired Physical Exam Const: COMMON NORMALS: no acute distress, patient oriented x3, no limitations, alert and well nourished GENERAL APPEARANCE: cooperative NUTRITIONAL APPEARANCE: overweight ORIENTATION/CONSCIOUSNESS: Yes awake, Yes oriented to person, Yes oriented to place and Yes oriented to time Resp: COMMON NORMALS: normal respiratory effort and clear to auscultation bilaterally AUSCULTATION: clear to auscultation bilaterally Cardio: COMMON NORMALS: regular rate and regular rhythm RATE: regular rate RHYTHM: regular rhythm Extremity: COMMON NORMALS: full ROM, capillary refill normal and no joint enlargement GENERAL: Yes normal exam except as noted RIGHT LOWER EXTREMITY: Yes lower leg OTHER: pt has edema to R calf compared to L; there is a non-blanching overlying rash to lateral and medial edges of calf; leg is not overly warm to the touch; no abnormal findings to knee, ankle, or foot; - Brooke's; NV intact Neuro: COMMON NORMALS: patient oriented x3, moves all extremities, no focal motor deficits, no sensory deficits noted and gait normal SENSORIUM/ORIENTATION: Yes alert, Yes oriented to person, Yes oriented to place and Yes oriented to time Skin: RASHES: rashes noted Course Vital Signs: Vital signs: Vital Signs Temperature 98 F 02/23/25 12:00 Pulse Rate 68 02/23/25 12:00 Respiratory Rate 17 02/23/25 12:00 Blood Pressure 154/92 02/23/25 12:00 Pulse Oximetry 96 02/23/25 12:00 Oxygen Delivery Me thod Room Air 02/23/25 12:00 MDM - Extremity (Nontraumatic) Medical Decision Making Patient is a nice 64-year-old male here for redness and swelling to his right lower extremity. Ultrasound imaging obtained and showing no DVT-possible reactive lymphadenopathy his vital signs are stable. His blood work is unremarkable. Scant elevation to his CRP. At this time we will place him on doxycycline and recommend follow-up with primary care later this week for reevaluation. Return to ED precautions discussed. Medical Records I reviewed the patient's medical records. Lab Data I reviewed the patient's lab results. 02/23/25 12:57 02/23/25 12:57 Laboratory Results WBC 6.46 10^3/uL (3.29-11.43) 02/23/25 12:57 RBC 4.81 10^6/uL (3.85-5.65) 02/23/25 12:57 Hgb 15.30 g/dL (11.27-16.99) 02/23/25 12:57 Hct 45.6 % (37-53) 02/23/25 12:57 MCV 94.8 fl (82-101) 02/23/25 12:57 MCH 31.8 pg (27-33) 02/23/25 12:57 MCHC 33.6 g/dL (30-55) 02/23/25 12:57 RDW 13.0 % (12.1-15.1) 02/23/25 12:57 Plt Count 165 10^3/cmm (157-399) 02/23/25 12:57 MPV 10.9 fL (7.4-10.4) H 02/23/25 12:57 Neut % (Auto) 70.8 % 02/23/25 12:57 Lymph % (Auto) 17.8 % 02/23/25 12:57 Gilliam % (Auto) 7.9 % 02/23/25 12:57 Eos % (Auto) 2.0 % 02/23/25 12:57 Baso % (Auto) 0.6 % 02/23/25 12:57 Neut # (Auto) 4.57 10^3/uL (1.8-7.7) 02/23/25 12:57 Lymph # (Auto) 1.2 10^3/uL (0.8-4.8) 02/23/25 12:57 Gilliam # (Auto) 0.5 10^3/uL (0.2-0.9) 02/23/25 12:57 Eos # (Auto) 0.1 10^3/uL (0.0-0.8) 02/23/25 12:57 Baso # (Auto) 0.0 10^3/uL (0.0-0.1) 02/23/25 12:57 Nucleated RBC % (auto) 0 % 02/23/25 12:57 Nucleated RBCs # 0.0 /100WBC 02/23/25 12:57 PT 12.80 SECONDS (12.1-14.9) 02/23/25 12:57 INR 0.90 (0.8-1.2) 02/23/25 12:57 APTT 25.3 SECONDS (23.9-36.7) 02/23/25 12:57 Sodium 139 mmol/L (136-145) 02/23/25 12:57 Potassium 4.1 mmol/L (3.5-5.1) 02/23/25 12:57 Chloride 102 mmol/L (98-107) 02/23/25 12:57 Carbon Dioxide 24 mmol/L (22-29) 02/23/25 12:57 Anion Gap 17.1 (5-19) 02/23/25 12:57 BUN 16 mg/dL (8-23) 02/23/25 12:57 Creatinine 0.8 mg/dL (0.7-1.2) 02/23/25 12:57 GFR Calculation 97.0 mL/min (90-130) 02/23/25 12:57 Glucose 118 mg/dL (65-115) H 02/23/25 12:57 Calculated Osmolality 290 mOsm/kg (285-295) 02/23/25 12:57 Calcium 9.5 mg/dL (8.5-10.5) 02/23/25 12:57 Total Bilirubin 0.6 mg/dL (0.15-1.2) 02/23/25 12:57 AST 15 U/L (0-40) 02/23/25 12:57 ALT 21 U/L (0-41) 02/23/25 12:57 Alkaline Phosphatase 62 U/L (40-130) 02/23/25 12:57 C-Reactive Protein 17.9 mg/L (0.0-4.9) H 02/23/25 12:57 Total Protein 7.0 g/dL (6.6-8.7) 02/23/25 12:57 Albumin 4.1 g/dL (3.5-5.2) 02/23/25 12:57 Globulin 2.9 g/dL (1.3-4.6) 02/23/25 12:57 All radiology interpretation(s) finalized by discharge Discharge Plan Discharge Patient Disposition: Home Clinical Impression: Edema of right lower extremity Condition: Stable Prescriptions: New doxycycline monohydrate 100 mg capsule 100 mg PO Q12H 10 Days Qty: 20 0RF No Action metoprolol succinate 100 mg tablet extended release 24 hr 100 mg PO DAILY finasteride 5 mg tablet 5 mg PO DAILY amlodipine 10 mg tablet 10 mg PO DAILY tamsulosin 0.4 mg capsule 0.4 mg PO DAILY simvastatin 40 mg tablet 40 mg PO DAILY olopatadine 0.1 % drops 1 drop ophthalmic (eye) BID celecoxib 200 mg capsule 200 mg PO DAILY hydrocodone-acetaminophen 10-325 mg tablet 1 tab PO Q4H PRN tramadol 50 mg tablet 50 mg PO Q8H PRN diclofenac sodium [Voltaren] 1 % gel 2 gm TOPICAL QID Qty: 100 3RF Rx Instructions: apply to single elbow, wrist or hand; for hand includes palm/fingers/back of hand (DME) custom molded orthotics See Rx Instructions .Route .MEDSUPPLY Qty: 2 0RF Rx Instructions: As directed Discharge Orders: Discharge ED (Routine); Ordered 02/23/25 Ordered By: Claudia Neal Referrals: Esther Olivo DO [Primary Care Provider, [facility]] Patient Instructions: Patient Portal & Jonathan Instructions Activity Restrictions/Additional Instructions: As we discussed, ultrasound imaging did not show any evidence of a blood clot to your leg. We will place you on antibiotics with recommendations to follow-up with primary care later this week for re-evaluation. Print Language: Moldovan Coding Level of Care Code ED [employer] Faculty Member for Araseli Flores
--- NOTE | 2025-02-23 12:27 | USCV_ITS ---
Ricardo Art Age: 64 Gender: M : 1960 Exam Date: 02/23/2025 12:50 Ordering Phys: Claudia Neal Technologist: [place] [facility] [place]: swelling, edema, redness HISTORY: Lower extremity swelling. Edema. Lower extremity pain. PROCEDURES: Venous duplex imaging was performed in only the right lower extremity. Serial compression, augmentation maneuvers, and spectral Doppler flow evaluation were performed. FINDINGS: No evidence of DVT seen in any vessel visualized at this time. Enlarged lymph nodes seen in the. Right groin. CONCLUSIONS No evidence of right lower extremity DVT. Enlarged lymph nodes RIGHT groin non-specific but may be reactive Inderjit Cm MD (Electronically Signed) Final Date: 23 February 2025 13:40 S
[2025-02-23 13:04] LABS: Hematocrit 45.6 % (37-53); Hemoglobin 15.30 g/dL (11.27-16.99); Mean Corpuscular HGB Conc 33.6 g/dL (30-55); Mean Corpuscular Hemoglobin 31.8 pg (27-33); Mean Corpuscular Volume 94.8 fl (82-101); Nucleated Red Blood Cells % 0 %; Platelet Count 165 10^3/cmm (157-399); Red Blood Count 4.81 10^6/uL (3.85-5.65); White Blood Count 6.46 10^3/uL (3.29-11.43)
[2025-02-23 13:18] LABS: INR 0.90 (0.8-1.2); Prothrombin Time 12.80 SECONDS (12.1-14.9)
[2025-02-23 13:19] LABS: Partial Thromboplastin Time 25.3 SECONDS (23.9-36.7)
[2025-02-23 13:26] LABS: Alanine Aminotransferase 21 U/L (0-41); Albumin Level 4.1 g/dL (3.5-5.2); Alkaline Phosphatase 62 U/L (40-130); Anion Gap 17.1 (5-19); Aspartate Amino Transferase 15 U/L (0-40); Blood Urea Nitrogen 16 mg/dL (8-23); Calcium 9.5 mg/dL (8.5-10.5); Carbon Dioxide 24 mmol/L (22-29); Chloride 102 mmol/L (98-107); Creatinine Clr Calc Pharmacy 107.1583; Globulin 2.9 g/dL (1.3-4.6); Glucose 118 mg/dL (65-115); Osmolality Calculated 290 mOsm/kg (285-295); Potassium 4.1 mmol/L (3.5-5.1); Sodium 139 mmol/L (136-145); Total Protein 7.0 g/dL (6.6-8.7)
[2025-02-23 13:50] VITALS: BP 152/83; PULSE 71; O2SAT 97
== END 2025-02-23 13:51 | disposition home or self-care (01) ==
PROVIDERS: Emergency Provider Physician Assistant; Family Provider Family Medicine; PCP Family Medicine
DX: R60.0 Localized edema (principal)
CPT/HCPCS: 36415; 80053; 85025; 85610; 85730; 86140; 93971; 99284